=== PATIENT | male | born 1960 | race Caucasian/White ===

== ENCOUNTER 2016-11-27 21:00 | Inpatient (IN) | payer OTHER ==
[~2016-11-27] VITALS: Ht 182.9 cm; Wt 81.6 kg
--- NOTE | ~2016-11-27 | PA ---
Unit #: [id number] #: [id number] Patient: JUAN LOCKWOOD [id number] [facility] [address] [place] [address] [id number] MR#: [id number] NAME: JUAN LOCKWOOD ROOM: [facility] Age: 56 Sex: M Admission Date: 11/28/2016 : 1960 Date of Assessment: 11/28/2016 Attending Physician: Jer Collins M.D. Admitting Physician: Jer Collins M.D. Primary Care Physician: Primary Care Physician No PSYCHIATRIC ASSESSMENT IDENTIFYING INFORMATION The patient is a 56-year-old white male admitted to the [address] [place] [address] for alcohol detox. CHIEF COMPLAINT "Drinking too much." INFORMANT Patient, reliability is good. HISTORY OF PRESENT ILLNESS The patient is a 56-year-old white male admitted to the [address] [place] [address] for alcohol detox. The patient reports that he has been drinking up to half of fifth of hard liquor on a daily basis. The patient reports previous treatment several years ago in his home area of [place], [place]. The patient reports no other previous psychiatric treatment. He denies abuse of other psychiatric substances. He denies recent changes in mood, sleep, or appetite. The patient reports no history of complicated substance withdrawal, seizures, DTs, etc. The patient reports no current suicidal or homicidal ideation and denies prior suicide attempts or gestures. He denies any psychotic symptoms. 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 PAST PSYCHIATRIC HISTORY As above. PAST MEDICAL HISTORY Significant for a history of prostatectomy in 2012. MEDICATIONS None. ALLERGIES Codeine. FAMILY HISTORY Noncontributory. SOCIAL HISTORY The patient's occupational history is noted previously. He is a graduate of [employer]. He reports alcohol use as noted previously and is a smoker. Unit #: [id number] #: [id number] Patient: JUAN LOCKWOOD MENTAL STATUS EXAMINATION Examination at this time reveals the patient to be a well-developed well-nourished somewhat disheveled white male appearing stated age. He is in no apparent physical distress at the time of examination. He is awake, alert, and oriented in all spheres. His mood is euthymic, his affect congruent. Speech is generally well coherent. There are no gross deficits in memory or cognition noted. Intelligence is judged to be in the average range based on fund of knowledge. The patient is cooperative throughout the interview. He is currently denying suicidal or homicidal ideation or psychotic features. Judgment and insight appear to be intact. ASSETS AND LIABILITIES The patient's assets: Motivation for change. Liabilities: None noted. DIAGNOSTIC IMPRESSION 1. Alcohol use disorder. 2. History of prostatectomy. TREATMENT PLAN The patient remains hospitalized for safety and stabilization. Routine detoxification protocol for alcohol has been initiated. The patient will participate in appropriate read and milieu activities. ESTIMATED LENGTH OF STAY 3 to 5 days. I will ask social group worker to see him regarding post-discharge treatment options. Dictated by... Jer Collins M.D. Wali TD: 11/28/2016 13:29 JOB #: [id number] PSYCHIATRIC ASSESSMENT Page 1 of 1 X Jer Collins MD X PSYCHIATRIC ASSESSMENT
--- NOTE | ~2016-11-27 | DS ---
Unit #: [id number] #: [id number] Patient: JUAN LOCKWOOD [id number] [facility] [address] [place] [address] [id number] MR#: [id number] NAME: JUAN LOCKWOOD ROOM: [facility] Age: 56 Sex: M Admission Date: 11/28/2016 : 1960 Discharge Date: 12/01/2016 Attending Physician: Jer Collins M.D. Primary Care Physician: Primary Care Physician No DISCHARGE SUMMARY REASON FOR ADMISSION The patient is a 56-year-old white male admitted for alcohol detox. HOSPITAL COURSE The patient was admitted to the [facility] and placed on routine detoxification protocol for alcohol. His stay in the hospital was a brief and uneventful one with his detox progressing uneventfully. By 12/01/2016, the patient had made arrangements for followup in [facility] for his alcohol-related issues, and discharge was ordered. FINAL DIAGNOSIS Alcohol use disorder. DISPOSITION ON DISCHARGE The patient was discharged on no psychotropic or other medications. Followup will take place through the auspices of community mental health and chemical dependence treatment resources in the [facility]. PROGNOSIS Considered good. Dictated by... Jer Collins M.D. CB/morales TD: 12/02/2016 12:52 JOB #: [id number] DISCHARGE SUMMARY Page 1 of 1 X Jer Collins MD X DISCHARGE SUMMARY
--- NOTE | ~2016-11-27 | HP ---
Unit #: [id number] #: [id number] Patient: JUAN LOCKWOOD [id number] [place] [address] [id number] MR#: [id number] NAME: JUAN LOCKWOOD ROOM: 80 Age: 56 Sex: M Admission Date: 11/28/2016 : 1960 Attending Physician: Jer Collins M.D. Admitting Physician: Jer Collins M.D. Primary Care Physician: Primary Care Physician No HISTORY AND PHYSICAL HISTORY OF PRESENT ILLNESS Patient is a 56-year-old male admitted to [facility] on 11/28/2016 to detox from alcohol. PAST MEDICAL HISTORY Significant for alcohol abuse and nicotine dependence. PAST SURGICAL HISTORY TURP. SOCIAL HISTORY He is unemployed. He lives with his girlfriend. Smokes one pack of cigarettes daily. Drinks a gallon of vodka per day. FAMILY MEDICAL HISTORY Noncontributory. ALLERGIES Codeine. CURRENT MEDICATIONS The patient is not on any home medications. REVIEW OF SYSTEMS CONSTITUTIONAL: No fever or chills. HEENT: Denies any sore throat, ear pain or runny nose. CARDIOVASCULAR: Denies chest pain, irregular heart rhythm or palpitations. CHEST: Denies shortness of breath or cough. No hemoptysis. GASTROINTESTINAL: Denies nausea, vomiting, diarrhea or chronic constipation. ENDOCRINE: Denies history of increased thirst or urination. No recent significant weight loss or gain. GENITOURINARY: Denies dysuria, frequency, or hematuria. SKIN: Denies any rashes. HEMATOLOGIC: Denies history of increased bleeding or bruising. MUSCULOSKELETAL: Denies any hot, swollen joints. No generalized muscle pain. NEUROLOGIC: Denies problems with vision or speech. No frequent, severe headaches. No numbness, tingling or weakness in any extremities. Denies loss of bladder or bowel control. PHYSICAL EXAM GENERAL: He is awake, alert and oriented in no acute distress. Unit #: [id number] #: [id number] Patient: JUAN LOCKWOOD VITAL SIGNS: Temperature 98.2, heart rate 84, respiration 16, blood pressure 140/97. HEIGHT: 6'0". WEIGHT: 180 pounds. SKIN: Warm and dry without rash or lesion. HEENT: Normocephalic. TMs not viewed. Oral and nasal passages clear. Conjunctivae clear. PERRLA. EOMs intact. NECK: Supple without lymphadenopathy or thyromegaly. HEART: Regular rate and rhythm without murmur. LUNGS: Clear. ABDOMEN: Soft, nontender. : Not done. EXTREMITIES: No evidence of cyanosis, clubbing or edema. Moves all without focal deficit. NEUROLOGICAL: Grossly within normal limits. Cranial Nerves: II: Visual lockwood are intact. III, IV AND : Extraocular movements are intact. Pupils are equal, round and reactive to light. V: Facial sensation is grossly normal. VII: Facial movements and expression are normal. VIII: Auditory acuity grossly intact. IX, X: Uvula is midline. Phonation is normal. XI: Patient shrugs shoulders and turns head normally. XII: Tongue protrudes in the midline. Sensory and Motor Function: Sensory and motor sensation is grossly normal. Motor: moves all extremities well. IMPRESSION 1. Psychiatric admission. 2. Alcohol abuse. 3. Nicotine dependence. RECOMMENDATIONS Psychiatric per psychiatrist. MEDICAL: No contraindication to participate in facility activities. MEDICAL PROGNOSIS Good. MEDICAL CONDITION Stable. Dictated by... Dot Browne/najma TD: 11/30/2016 01:38 JOB #: [id number] Unit #: [id number] #: [id number] Patient: JUAN LOCKWOOD HISTORY AND PHYSICAL Page 1 of 1 X KEITH HIGH APRN HISTORY AND PHYSICAL
--- NOTE | ~2016-11-27 | PN ---
Unit #: [id number] #: [id number] Patient: JUAN LOCKWOOD [id number] [facility] [address] [place] [address] [id number] MR#: [id number] NAME: JUAN LOCKWOOD ROOM: [facility] Age: 56 Sex: M Admission Date: 11/28/2016 : 1960 Attending Physician: Jer Collins M.D. Admitting Physician: Jer Collins M.D. Primary Care Physician: Primary Care Physician No [facility] PROGRESS NOTES DATE 11/30/2016 DISCUSSION The patient's detox continues uneventfully. Should he sustain progress discharge could take place as early as tomorrow. Dictated by... Jer Collins M.D. CB/najma TD: 12/01/2016 00:12 JOB #: [id number] [facility] PROGRESS NOTES Page 1 of 1 X Jer Collins MD X PROGRESS NOTE
--- NOTE | ~2016-11-27 | PN ---
Unit #: [id number] #: [id number] Patient: JUAN LOCKWOOD [id number] [facility] [address] [place] [address] [id number] MR#: [id number] NAME: JUAN LOCKWOOD ROOM: [facility] Age: 56 Sex: M Admission Date: 11/28/2016 : 1960 Attending Physician: Jer Collins M.D. Admitting Physician: Jer Collins M.D. Primary Care Physician: Primary Care Physician Yissel JIMENES PROGRESS NOTES DATE 11/29/2016 DISCUSSION The patient continues active participation within the therapeutic milieu and his detox continues uneventfully. We continue current treatment. Dictated by... Jer Collins M.D. CB/najma TD: 11/30/2016 01:06 JOB #: [id number] [facility] PROGRESS NOTES Page 1 of 1 X Jer Collins MD X PROGRESS NOTE
== END 2016-12-01 15:30 | disposition home or self-care (01) | DRG 897 ==
LOC: P1E 11-28 08:47
PROC: HZ2ZZZZ Detoxification Services for Substance Abuse Treatment (ICD-10-PCS; principal; 2016-11-28)
DX: F10.10 Alcohol abuse, uncomplicated (principal); F17.210 Nicotine dependence, cigarettes, uncomplicated
CPT/HCPCS: 86592